=== PATIENT | male | born 1960 | race American Indian/Alaskan Native ===

== ENCOUNTER → 2018-01-30 | Outpatient (CLI) | payer MEDICARE, OTHER ==
[~2018-01-30] MED LIST: ACET325; ACET325 PO; ACET500 PO; ALBU90OI; ALBU90OI INH; ARIP10 PO; ASPI325EC; ASPI81CH PO; ATOR10; ATOR40TA PO; CHOL10002 PO; CYAN100 PO; Cleocin HCl300 MG PO; DOCSEN; Dilantin 100 m100 MG PO; EZET10 PO; FISH1000 PO; FLUSAL2505 INH; FLUT110OIA; FOLI1; FOLI1 PO; FURO20 PO; HYDACE10B PO; HYDCHL12.5 PO; HYDR1TAB94 PO; Hydrocodone-Ap1 EA23 PO; IBUP400 PO; LEVO750 PO; LISHYD1012; LISI5 PO; LISINOPRIL 10MG PO; LOPE2C; LOPE2C PO; Lotrimin Ultra12 GM TP; MULTIVITAMIN PO; MULVIT PO; MULVITMIND; MULVITMIND PO; MUPI2TC; NIAC250ER PO; NYST100TC TOP; NYSTOP; OLAN5 PO; OLANZAPINE5 MG PO; PANT40; PHENY100ER; PHENY100ER PO; RANI150; SENNP; SIMV20; THIA100 PO; TIOT18; TIOT18 INH; VITAMIN B-1100 MG PO; VITAMIN B1; VITAMIN D31000 UNIT PO; VITB100; [UNRECOGNIZED DRUG - OTHER]; [UNRECOGNIZED DRUG - OTHER]
== END ==
LOC: LAB SHORT 12:57 → LAB EV 12:57
DX: L03.90 Cellulitis, unspecified (principal)
CPT/HCPCS: 87070; 87077; 87147; 87186; 87205

== ENCOUNTER 2018-03-20 07:53 | Day surgery (SDC) | payer MEDICARE, OTHER | END 2018-03-20 22:58 | disposition home or self-care (01) | LOC: WOUND 07:53 | DX: L97.202 Non-pressure chronic ulcer of unspecified calf with fat layer exposed (principal); I87.2 Venous insufficiency (chronic) (peripheral); E11.9 Type 2 diabetes mellitus without complications; Z72.0 Tobacco use ==

== ENCOUNTER 2018-03-23 01:08 | Day surgery (SDC) | payer MEDICARE, OTHER | END 2018-03-23 22:59 | disposition home or self-care (01) | LOC: WOUND 01:08 | DX: Z48.00 Encounter for change or removal of nonsurgical wound dressing (principal); E11.622 Type 2 diabetes mellitus with other skin ulcer; L97.202 Non-pressure chronic ulcer of unspecified calf with fat layer exposed; Z72.0 Tobacco use | CPT/HCPCS: G0463 ==

== ENCOUNTER 2018-05-08 00:11 | Day surgery (SDC) | payer MEDICARE, OTHER ==
[~2018-05-08 00:11] MED LIST changes: +FISH OIL 1,0001 EAC1 PO
== END 2018-05-08 22:38 | disposition home or self-care (01) ==
LOC: WOUND 00:11
DX: L97.202 Non-pressure chronic ulcer of unspecified calf with fat layer exposed (principal); I87.2 Venous insufficiency (chronic) (peripheral); E11.9 Type 2 diabetes mellitus without complications; Z72.0 Tobacco use
CPT/HCPCS: 87070; 87075; 87077; 87147; 87186; 87205; G0463

== ENCOUNTER 2018-05-18 10:51 | Day surgery (SDC) | payer MEDICARE, OTHER | END 2018-05-18 23:08 | disposition home or self-care (01) | LOC: WOUND 10:51 | DX: L97.222 Non-pressure chronic ulcer of left calf with fat layer exposed (principal); I87.2 Venous insufficiency (chronic) (peripheral); E11.9 Type 2 diabetes mellitus without complications; Z72.0 Tobacco use ==

== ENCOUNTER 2018-05-25 10:15 | Day surgery (SDC) | payer MEDICARE, OTHER | END 2018-05-25 22:44 | disposition home or self-care (01) | LOC: WOUND 10:15 | PROC: 0HBLXZZ Excision of Left Lower Leg Skin, External Approach (ICD-10-PCS; principal; 2018-05-25) | DX: E11.622 Type 2 diabetes mellitus with other skin ulcer (principal); L97.202 Non-pressure chronic ulcer of unspecified calf with fat layer exposed; I87.2 Venous insufficiency (chronic) (peripheral) ==

== ENCOUNTER 2018-05-29 10:00 | Day surgery (SDC) | payer MEDICARE, OTHER | END 2018-05-29 22:34 | disposition home or self-care (01) | LOC: WOUND 10:00 | PROC: 0HBLXZZ Excision of Left Lower Leg Skin, External Approach (ICD-10-PCS; principal; 2018-05-29) | DX: E11.622 Type 2 diabetes mellitus with other skin ulcer (principal); L97.822 Non-pressure chronic ulcer of other part of left lower leg with fat layer exposed; I87.2 Venous insufficiency (chronic) (peripheral) ==

== ENCOUNTER → 2018-06-09 | Outpatient (CLI) | payer MEDICARE, OTHER ==
[~2018-06-09] MED LIST changes: +FURO40 PO; +POTA10T PO; +VITB2 PO
== END | disposition home or self-care (01) ==
LOC: LAB SHORT 11:30 → LAB 11:30
DX: L97.222 Non-pressure chronic ulcer of left calf with fat layer exposed (principal)
CPT/HCPCS: 87070; 87075; 87205

== ENCOUNTER 2018-06-12 00:10 | Day surgery (SDC) | payer MEDICARE, OTHER ==
[~2018-06-12 00:10] MED LIST changes: -FURO40 PO; -POTA10T PO; -VITB2 PO
== END 2018-06-12 22:56 | disposition home or self-care (01) ==
LOC: WOUND 00:10
DX: L97.222 Non-pressure chronic ulcer of left calf with fat layer exposed (principal); I87.2 Venous insufficiency (chronic) (peripheral); E11.9 Type 2 diabetes mellitus without complications; Z72.0 Tobacco use
CPT/HCPCS: G0463

== ENCOUNTER → 2018-06-14 | Outpatient (CLI) | payer MEDICARE, OTHER ==
[~2018-06-14] MED LIST changes: +FURO40 PO; +POTA10T PO; +VITB2 PO
== END | disposition home or self-care (01) ==
LOC: LAB 18:41 → LAB SHORT 18:41
DX: L97.222 Non-pressure chronic ulcer of left calf with fat layer exposed (principal)
CPT/HCPCS: 87070; 87075; 87077; 87186; 87205

== ENCOUNTER 2018-06-19 12:50 | Day surgery (SDC) | payer MEDICARE, OTHER ==
[~2018-06-19 12:50] MED LIST changes: -FURO40 PO; -POTA10T PO; -VITB2 PO
== END 2018-06-19 22:44 | disposition home or self-care (01) ==
LOC: WOUND 12:50
DX: L97.222 Non-pressure chronic ulcer of left calf with fat layer exposed (principal); I87.2 Venous insufficiency (chronic) (peripheral); E11.9 Type 2 diabetes mellitus without complications; Z72.0 Tobacco use

== ENCOUNTER 2018-06-21 01:36 | Day surgery (SDC) | payer MEDICARE, OTHER ==
[~2018-06-21] VITALS: Ht 182.9 cm; Wt 138.0 kg
[2018-06-21] MEDS ORDERED: FURO40 PO (08:25)
[2018-06-21] MEDS ORDERED: PHENY100ER PO (08:28)
[2018-06-21] MEDS ORDERED: POTA10T PO (08:28)
[2018-06-21] MEDS ORDERED: VITB2 PO (08:29)
[2018-06-21] MEDS ORDERED: ALBU90OI INH (08:29)
[2018-06-21] MEDS ORDERED: LOPE2C PO (08:30)
--- NOTE | 2018-06-21 09:39 | NUR ---
VASCULAR ACCESS DR. BARRAGAN STATED NO IV NEEDED FOR THIS PROCEDURE. PT STATED HE WOULD NOT NEED SEDATION FOR THIS PROCEDURE.
== END 2018-06-21 23:02 | disposition home or self-care (01) ==
LOC: MHTC 01:36 → VAS 10:00 → MHTC 10:00
PROC: 065Q3ZZ Destruction of Left Saphenous Vein, Percutaneous Approach (ICD-10-PCS; principal; 2018-06-21)
PROC: B54CZZA Ultrasonography of Left Lower Extremity Veins, Guidance (ICD-10-PCS; principal; 2018-06-21)
PROC: 3E033TZ Introduction of Destructive Agent into Peripheral Vein, Percutaneous Approach (ICD-10-PCS; principal; 2018-06-21)
DX: I83.222 Varicose veins of left lower extremity with both ulcer of calf and inflammation (principal); L97.229 Non-pressure chronic ulcer of left calf with unspecified severity; I89.0 Lymphedema, not elsewhere classified; L03.116 Cellulitis of left lower limb; I87.8 Other specified disorders of veins; G40.909 Epilepsy, unspecified, not intractable, without status epilepticus; I69.354 Hemiplegia and hemiparesis following cerebral infarction affecting left non-dominant side; I10 Essential (primary) hypertension; E78.5 Hyperlipidemia, unspecified; E11.9 Type 2 diabetes mellitus without complications; E66.9 Obesity, unspecified; J44.9 Chronic obstructive pulmonary disease, unspecified; F20.0 Paranoid schizophrenia; F17.210 Nicotine dependence, cigarettes, uncomplicated; Z99.3 Dependence on wheelchair; Z86.14 Personal history of Methicillin resistant Staphylococcus aureus infection; Z79.899 Other long term (current) drug therapy; Z79.82 Long term (current) use of aspirin
CPT/HCPCS: 36466; 36475; 99152; C1888; C1894; J1644; J2250; J3010; J7040

== ENCOUNTER 2018-06-26 12:15 | Day surgery (SDC) | payer MEDICARE, OTHER ==
[~2018-06-26 12:15] MED LIST changes: +FURO40 PO; +POTA10T PO; +VITB2 PO
== END 2018-06-26 22:42 | disposition home or self-care (01) ==
LOC: WOUND 12:15
PROC: 0HBLXZZ Excision of Left Lower Leg Skin, External Approach (ICD-10-PCS; principal; 2018-06-26)
DX: E11.622 Type 2 diabetes mellitus with other skin ulcer (principal); L97.822 Non-pressure chronic ulcer of other part of left lower leg with fat layer exposed; I87.2 Venous insufficiency (chronic) (peripheral)

== ENCOUNTER 2018-07-03 00:31 | Day surgery (SDC) | payer MEDICARE, OTHER | END 2018-07-03 22:36 | disposition home or self-care (01) | LOC: WOUND 00:31 | DX: L97.222 Non-pressure chronic ulcer of left calf with fat layer exposed (principal); I87.2 Venous insufficiency (chronic) (peripheral); E11.9 Type 2 diabetes mellitus without complications; Z72.0 Tobacco use; Z79.899 Other long term (current) drug therapy ==

== ENCOUNTER 2018-07-10 00:08 | Day surgery (SDC) | payer MEDICARE, OTHER | END 2018-07-10 22:39 | disposition home or self-care (01) | LOC: WOUND 00:08 | DX: L97.222 Non-pressure chronic ulcer of left calf with fat layer exposed (principal); I87.2 Venous insufficiency (chronic) (peripheral); E11.9 Type 2 diabetes mellitus without complications; Z72.0 Tobacco use | CPT/HCPCS: G0463 ==

== ENCOUNTER 2018-07-31 00:19 | Day surgery (SDC) | payer MEDICARE, OTHER | END 2018-07-31 22:37 | disposition home or self-care (01) | LOC: WOUND 00:19 | DX: L97.522 Non-pressure chronic ulcer of other part of left foot with fat layer exposed (principal); I87.2 Venous insufficiency (chronic) (peripheral); Z72.0 Tobacco use; E11.9 Type 2 diabetes mellitus without complications ==

== ENCOUNTER 2018-08-07 00:13 | Day surgery (SDC) | payer MEDICARE, OTHER | END 2018-08-07 22:50 | disposition home or self-care (01) | LOC: WOUND 00:13 | DX: E11.621 Type 2 diabetes mellitus with foot ulcer (principal); L97.322 Non-pressure chronic ulcer of left ankle with fat layer exposed; I87.2 Venous insufficiency (chronic) (peripheral); J44.9 Chronic obstructive pulmonary disease, unspecified; I10 Essential (primary) hypertension; I73.9 Peripheral vascular disease, unspecified; G40.909 Epilepsy, unspecified, not intractable, without status epilepticus; Z72.0 Tobacco use | CPT/HCPCS: G0463 ==

== ENCOUNTER 2018-08-14 09:00 | Day surgery (SDC) | payer MEDICARE, OTHER | END 2018-08-14 22:35 | disposition home or self-care (01) | LOC: WOUND 09:00 | DX: E11.622 Type 2 diabetes mellitus with other skin ulcer (principal); L97.322 Non-pressure chronic ulcer of left ankle with fat layer exposed; I87.2 Venous insufficiency (chronic) (peripheral); J44.9 Chronic obstructive pulmonary disease, unspecified; I10 Essential (primary) hypertension; G40.909 Epilepsy, unspecified, not intractable, without status epilepticus; Z72.0 Tobacco use | CPT/HCPCS: G0463 ==

== ENCOUNTER 2018-08-21 01:05 | Day surgery (SDC) | payer MEDICARE, OTHER | END 2018-08-21 23:15 | disposition home or self-care (01) | LOC: WOUND 01:05 | DX: E11.622 Type 2 diabetes mellitus with other skin ulcer (principal); L97.322 Non-pressure chronic ulcer of left ankle with fat layer exposed; I73.9 Peripheral vascular disease, unspecified; I10 Essential (primary) hypertension; J44.9 Chronic obstructive pulmonary disease, unspecified; Z86.73 Personal history of transient ischemic attack (TIA), and cerebral infarction without residual deficits ==

== ENCOUNTER 2018-08-28 00:24 | Day surgery (SDC) | payer MEDICARE, OTHER | END 2018-08-28 22:46 | disposition home or self-care (01) | LOC: WOUND 00:24 | DX: I87.2 Venous insufficiency (chronic) (peripheral) (principal); E11.622 Type 2 diabetes mellitus with other skin ulcer; L97.322 Non-pressure chronic ulcer of left ankle with fat layer exposed; I89.0 Lymphedema, not elsewhere classified; J44.9 Chronic obstructive pulmonary disease, unspecified; I73.9 Peripheral vascular disease, unspecified; Z72.0 Tobacco use ==

== ENCOUNTER 2018-09-04 09:03 | Day surgery (SDC) | payer MEDICARE, OTHER | END 2018-09-04 22:47 | disposition home or self-care (01) | LOC: WOUND 09:03 | DX: I87.2 Venous insufficiency (chronic) (peripheral) (principal); E11.621 Type 2 diabetes mellitus with foot ulcer; L97.522 Non-pressure chronic ulcer of other part of left foot with fat layer exposed; I89.0 Lymphedema, not elsewhere classified; J44.9 Chronic obstructive pulmonary disease, unspecified; I73.9 Peripheral vascular disease, unspecified; G40.909 Epilepsy, unspecified, not intractable, without status epilepticus; Z72.0 Tobacco use; Z86.73 Personal history of transient ischemic attack (TIA), and cerebral infarction without residual deficits; Z99.3 Dependence on wheelchair | CPT/HCPCS: G0463 ==

== ENCOUNTER 2018-09-11 09:42 | Day surgery (SDC) | payer MEDICARE, OTHER | END 2018-09-11 22:38 | disposition home or self-care (01) | LOC: WOUND 09:42 | DX: I87.2 Venous insufficiency (chronic) (peripheral) (principal); E11.621 Type 2 diabetes mellitus with foot ulcer; L97.522 Non-pressure chronic ulcer of other part of left foot with fat layer exposed; Z72.0 Tobacco use | CPT/HCPCS: G0463 ==

== ENCOUNTER 2018-09-18 09:45 | Day surgery (SDC) | payer MEDICARE, OTHER | END 2018-09-18 22:44 | disposition home or self-care (01) | LOC: WOUND 09:45 | DX: E11.621 Type 2 diabetes mellitus with foot ulcer (principal); L97.522 Non-pressure chronic ulcer of other part of left foot with fat layer exposed; I87.2 Venous insufficiency (chronic) (peripheral); E11.622 Type 2 diabetes mellitus with other skin ulcer; Z72.0 Tobacco use | CPT/HCPCS: G0463 ==

== ENCOUNTER → 2019-04-30 | Outpatient (CLI) | payer MEDICARE, OTHER | END | disposition home or self-care (01) | LOC: LAB SHORT 17:43 → LAB EV 17:43 | DX: S91.302A Unspecified open wound, left foot, initial encounter (principal) | CPT/HCPCS: 87070; 87075; 87205 ==

== ENCOUNTER 2019-05-09 09:52 | Day surgery (SDC) | payer MEDICARE, OTHER ==
--- NOTE | 2019-05-09 10:33 | NUR ---
PT INTO SDS VIA mymission2. Patient confirms NPO status and agrees with scheduled surgery. History, Chart, Medications and Allergies reviewed before start of procedure.Patient states colon prep results clear.
--- NOTE | 2019-05-09 10:45 | NUR ---
05/09/19 1045 KHADIJAH CHAKRABORTY History, Chart, Medications and Allergies reviewed before start of procedure.3-LEAD EKG REVIEWED WITH PHYSICIAN PRIOR TO START OF PROCEDURE.O2 VIA N/C INTACT THROUGHOUT SEDATION/PROCEDURE. MONITOR INTACT WITH CONTINUOUS PULSE OXIMETRY AND INTERMITTENT BP.See Anesthesia record
--- NOTE | 2019-05-09 11:20 | NUR ---
PT TO STEP DOWN FOR RECOVERY S/P COLONOSCOPY. PT WITH DEEP SNOROUS RESPIRATIONS AT THIS TIME. SATS 95% ON RA. WAKES TO VERBAL STIMULI.
--- NOTE | 2019-05-09 12:13 | NUR ---
SUMMARY: PT HAD UNEVENTFUL POST PROCEDURE COURSE. AWAKENED WITH EASE. FOLLOWED COMMANDS AND CONVERSING WITH STAFF APPROPRIATELY. NO C/O PAIN, NAUSEA, OR DISCOMFORT. REVIEWED DISCHARGE INSTRUCTIONS WITH PATIENT AND JACOB LUCIO REVIEWED WITH PATIENT'S MCC. ALL VERBALIZED UNDERSTANDING. PT DRESSED BY TRADE EMBALMER AND TRANSFERRED TO WHEELCHAIR USING CEILING LIFT WITHOUT DIFFICULTY. IV DC TIP INTACT BY JACOB LUGO. PRINTED DISCHARGE PACKET SENT HOME WITH PATIENT. TRANSPORT PREARRANGED [facility]IA [facility].
== END 2019-05-09 23:03 | disposition home or self-care (01) ==
LOC: ORSCMMR 09:52 → ORD 11:00 → ORSCMMR 11:00
PROVIDERS: Internal Medicine Gastroenterology
PROC: 0DBN8ZX Excision of Sigmoid Colon, Via Natural or Artificial Opening Endoscopic, Diagnostic (ICD-10-PCS; principal; 2019-05-09 11:00)
PROC: 0DBP8ZX Excision of Rectum, Via Natural or Artificial Opening Endoscopic, Diagnostic (ICD-10-PCS; principal; 2019-05-09 11:00)
DX: Z12.11 Encounter for screening for malignant neoplasm of colon (principal); D12.5 Benign neoplasm of sigmoid colon; D12.8 Benign neoplasm of rectum; K57.30 Diverticulosis of large intestine without perforation or abscess without bleeding; E66.01 Morbid (severe) obesity due to excess calories; Z68.42 Body mass index [BMI] 45.0-49.9, adult; Z86.73 Personal history of transient ischemic attack (TIA), and cerebral infarction without residual deficits; G40.909 Epilepsy, unspecified, not intractable, without status epilepticus; E11.9 Type 2 diabetes mellitus without complications; I10 Essential (primary) hypertension; J44.9 Chronic obstructive pulmonary disease, unspecified; F20.9 Schizophrenia, unspecified; Z79.82 Long term (current) use of aspirin; Z79.84 Long term (current) use of oral hypoglycemic drugs; Z79.899 Other long term (current) drug therapy; F17.210 Nicotine dependence, cigarettes, uncomplicated
CPT/HCPCS: 82947; 88305; J2001; J2704; J7120

== ENCOUNTER 2019-05-24 07:59 | Day surgery (SDC) | payer MEDICARE, OTHER | END 2019-05-24 23:24 | disposition home or self-care (01) | LOC: WOUND 07:59 | DX: E11.622 Type 2 diabetes mellitus with other skin ulcer (principal); L97.822 Non-pressure chronic ulcer of other part of left lower leg with fat layer exposed; E11.52 Type 2 diabetes mellitus with diabetic peripheral angiopathy with gangrene; I96 Gangrene, not elsewhere classified; I89.0 Lymphedema, not elsewhere classified; I87.2 Venous insufficiency (chronic) (peripheral); F17.200 Nicotine dependence, unspecified, uncomplicated; J44.9 Chronic obstructive pulmonary disease, unspecified; I10 Essential (primary) hypertension; G40.909 Epilepsy, unspecified, not intractable, without status epilepticus; Z99.3 Dependence on wheelchair; Z79.82 Long term (current) use of aspirin; Z79.51 Long term (current) use of inhaled steroids; Z79.899 Other long term (current) drug therapy | CPT/HCPCS: G0463 ==

== ENCOUNTER 2019-06-06 00:48 | Day surgery (SDC) | payer MEDICARE, OTHER | END 2019-06-06 23:13 | disposition home or self-care (01) | LOC: WOUND 00:48 | DX: E11.622 Type 2 diabetes mellitus with other skin ulcer (principal); L97.821 Non-pressure chronic ulcer of other part of left lower leg limited to breakdown of skin; I89.0 Lymphedema, not elsewhere classified; I87.2 Venous insufficiency (chronic) (peripheral); Z79.82 Long term (current) use of aspirin; Z79.899 Other long term (current) drug therapy ==

== ENCOUNTER 2019-06-13 00:17 | Day surgery (SDC) | payer MEDICARE, OTHER | END 2019-06-13 23:01 | disposition home or self-care (01) | LOC: WOUND 00:17 | DX: E11.621 Type 2 diabetes mellitus with foot ulcer (principal); L97.521 Non-pressure chronic ulcer of other part of left foot limited to breakdown of skin; L97.821 Non-pressure chronic ulcer of other part of left lower leg limited to breakdown of skin; I89.0 Lymphedema, not elsewhere classified; I87.2 Venous insufficiency (chronic) (peripheral); Z79.82 Long term (current) use of aspirin; Z79.899 Other long term (current) drug therapy | CPT/HCPCS: G0463 ==

== ENCOUNTER 2019-06-27 02:19 | Day surgery (SDC) | payer MEDICARE, OTHER | END 2019-06-27 23:04 | disposition home or self-care (01) | LOC: WOUND 02:19 | DX: E11.622 Type 2 diabetes mellitus with other skin ulcer (principal); E11.621 Type 2 diabetes mellitus with foot ulcer; L97.521 Non-pressure chronic ulcer of other part of left foot limited to breakdown of skin; L97.821 Non-pressure chronic ulcer of other part of left lower leg limited to breakdown of skin; I89.0 Lymphedema, not elsewhere classified; I87.2 Venous insufficiency (chronic) (peripheral); Z79.899 Other long term (current) drug therapy; Z79.82 Long term (current) use of aspirin | CPT/HCPCS: G0463 ==

== ENCOUNTER 2019-07-04 00:28 | Day surgery (SDC) | payer MEDICARE | END 2019-07-04 23:04 | disposition home or self-care (01) | LOC: WOUND 00:28 | DX: E11.621 Type 2 diabetes mellitus with foot ulcer (principal); L97.521 Non-pressure chronic ulcer of other part of left foot limited to breakdown of skin; I89.0 Lymphedema, not elsewhere classified; I87.2 Venous insufficiency (chronic) (peripheral); Z79.899 Other long term (current) drug therapy ==

== ENCOUNTER 2019-07-11 00:13 | Day surgery (SDC) | payer MEDICARE, OTHER | END 2019-07-11 22:45 | disposition home or self-care (01) | LOC: WOUND 00:13 | DX: E11.621 Type 2 diabetes mellitus with foot ulcer (principal); L97.521 Non-pressure chronic ulcer of other part of left foot limited to breakdown of skin; L97.821 Non-pressure chronic ulcer of other part of left lower leg limited to breakdown of skin; I89.0 Lymphedema, not elsewhere classified; I87.2 Venous insufficiency (chronic) (peripheral); Z79.899 Other long term (current) drug therapy; Z79.82 Long term (current) use of aspirin ==

== ENCOUNTER 2019-07-18 00:13 | Day surgery (SDC) | payer MEDICARE | END 2019-07-18 22:49 | disposition home or self-care (01) | LOC: WOUND 00:13 | DX: E11.621 Type 2 diabetes mellitus with foot ulcer (principal); L97.521 Non-pressure chronic ulcer of other part of left foot limited to breakdown of skin; I89.0 Lymphedema, not elsewhere classified; I87.2 Venous insufficiency (chronic) (peripheral); Z79.82 Long term (current) use of aspirin; Z79.899 Other long term (current) drug therapy ==

== ENCOUNTER 2019-07-25 00:31 | Day surgery (SDC) | payer MEDICARE, OTHER | END 2019-07-25 23:12 | disposition home or self-care (01) | LOC: WOUND 00:31 | DX: E11.621 Type 2 diabetes mellitus with foot ulcer (principal); L97.521 Non-pressure chronic ulcer of other part of left foot limited to breakdown of skin; S90.822D Blister (nonthermal), left foot, subsequent encounter; I87.2 Venous insufficiency (chronic) (peripheral); Z79.899 Other long term (current) drug therapy; Z79.82 Long term (current) use of aspirin | CPT/HCPCS: G0463 ==

== ENCOUNTER 2019-09-03 00:11 | Day surgery (SDC) | payer MEDICARE, OTHER | END 2019-09-03 22:46 | disposition home or self-care (01) | LOC: WOUND 00:11 | DX: E11.621 Type 2 diabetes mellitus with foot ulcer (principal); L97.521 Non-pressure chronic ulcer of other part of left foot limited to breakdown of skin; I89.0 Lymphedema, not elsewhere classified; F17.210 Nicotine dependence, cigarettes, uncomplicated; I87.2 Venous insufficiency (chronic) (peripheral) | CPT/HCPCS: G0463 ==

== ENCOUNTER 2019-09-10 00:19 | Day surgery (SDC) | payer MEDICARE, OTHER | END 2019-09-10 22:49 | disposition home or self-care (01) | LOC: WOUND 00:19 | DX: E11.621 Type 2 diabetes mellitus with foot ulcer (principal); L97.521 Non-pressure chronic ulcer of other part of left foot limited to breakdown of skin; I87.2 Venous insufficiency (chronic) (peripheral); F17.210 Nicotine dependence, cigarettes, uncomplicated; Z79.82 Long term (current) use of aspirin; Z79.899 Other long term (current) drug therapy ==

== ENCOUNTER 2019-09-17 00:35 | Day surgery (SDC) | payer MEDICARE, OTHER | END 2019-09-17 22:35 | disposition home or self-care (01) | LOC: WOUND 00:35 | DX: E11.621 Type 2 diabetes mellitus with foot ulcer (principal); I87.2 Venous insufficiency (chronic) (peripheral); F17.210 Nicotine dependence, cigarettes, uncomplicated; Z79.82 Long term (current) use of aspirin; L97.521 Non-pressure chronic ulcer of other part of left foot limited to breakdown of skin; Z79.899 Other long term (current) drug therapy | CPT/HCPCS: G0463 ==

== ENCOUNTER 2019-09-24 00:07 | Day surgery (SDC) | payer MEDICARE, OTHER | END 2019-09-24 22:34 | disposition home or self-care (01) | LOC: WOUND 00:07 | DX: E11.621 Type 2 diabetes mellitus with foot ulcer (principal); L97.521 Non-pressure chronic ulcer of other part of left foot limited to breakdown of skin; I87.2 Venous insufficiency (chronic) (peripheral); F17.210 Nicotine dependence, cigarettes, uncomplicated; Z79.899 Other long term (current) drug therapy; Z79.82 Long term (current) use of aspirin ==

== ENCOUNTER 2019-10-01 00:12 | Day surgery (SDC) | payer MEDICARE, OTHER | END 2019-10-01 22:43 | disposition home or self-care (01) | LOC: WOUND 00:12 | DX: T14.90XD Injury, unspecified, subsequent encounter (principal) | CPT/HCPCS: G0463 ==

== ENCOUNTER 2019-10-08 00:27 | Day surgery (SDC) | payer MEDICARE, OTHER | END 2019-10-08 23:05 | disposition home or self-care (01) | LOC: WOUND 00:27 | DX: T14.8XXA Other injury of unspecified body region, initial encounter (principal); X58.XXXA Exposure to other specified factors, initial encounter | CPT/HCPCS: G0463 ==

== ENCOUNTER 2019-10-15 00:11 | Day surgery (SDC) | payer MEDICARE, OTHER | END 2019-10-15 22:50 | disposition home or self-care (01) | LOC: WOUND 00:11 | DX: E11.621 Type 2 diabetes mellitus with foot ulcer (principal); L97.521 Non-pressure chronic ulcer of other part of left foot limited to breakdown of skin; I87.2 Venous insufficiency (chronic) (peripheral); F17.210 Nicotine dependence, cigarettes, uncomplicated; Z79.899 Other long term (current) drug therapy; Z79.82 Long term (current) use of aspirin ==

== ENCOUNTER 2019-10-22 00:31 | Day surgery (SDC) | payer MEDICARE, OTHER | END 2019-10-22 22:43 | disposition home or self-care (01) | LOC: WOUND 00:31 | DX: E11.621 Type 2 diabetes mellitus with foot ulcer (principal); L97.521 Non-pressure chronic ulcer of other part of left foot limited to breakdown of skin; I89.0 Lymphedema, not elsewhere classified; I87.2 Venous insufficiency (chronic) (peripheral); F17.210 Nicotine dependence, cigarettes, uncomplicated | CPT/HCPCS: G0463 ==

== ENCOUNTER 2019-10-29 00:09 | Day surgery (SDC) | payer MEDICARE, OTHER | END 2019-10-29 23:00 | disposition home or self-care (01) | LOC: WOUND 00:09 | DX: E11.621 Type 2 diabetes mellitus with foot ulcer (principal); L97.521 Non-pressure chronic ulcer of other part of left foot limited to breakdown of skin; I87.2 Venous insufficiency (chronic) (peripheral); F17.210 Nicotine dependence, cigarettes, uncomplicated; Z79.82 Long term (current) use of aspirin | CPT/HCPCS: G0463 ==

== ENCOUNTER 2019-11-05 00:25 | Day surgery (SDC) | payer MEDICARE, OTHER | END 2019-11-05 22:35 | disposition home or self-care (01) | LOC: WOUND 00:25 | DX: L97.522 Non-pressure chronic ulcer of other part of left foot with fat layer exposed (principal); I89.0 Lymphedema, not elsewhere classified; E11.9 Type 2 diabetes mellitus without complications; I87.2 Venous insufficiency (chronic) (peripheral); F17.210 Nicotine dependence, cigarettes, uncomplicated ==

== ENCOUNTER 2019-11-12 00:20 | Day surgery (SDC) | payer MEDICARE, OTHER | END 2019-11-12 23:12 | disposition home or self-care (01) | LOC: WOUND 00:20 | DX: E11.621 Type 2 diabetes mellitus with foot ulcer (principal); L97.521 Non-pressure chronic ulcer of other part of left foot limited to breakdown of skin; I87.2 Venous insufficiency (chronic) (peripheral); F17.210 Nicotine dependence, cigarettes, uncomplicated; Z79.899 Other long term (current) drug therapy; Z79.82 Long term (current) use of aspirin ==

== ENCOUNTER 2019-11-26 00:10 | Day surgery (SDC) | payer MEDICARE, OTHER | END 2019-11-26 22:38 | disposition home or self-care (01) | LOC: WOUND 00:10 | DX: E11.621 Type 2 diabetes mellitus with foot ulcer (principal); L97.521 Non-pressure chronic ulcer of other part of left foot limited to breakdown of skin; I87.2 Venous insufficiency (chronic) (peripheral); F17.210 Nicotine dependence, cigarettes, uncomplicated; Z79.82 Long term (current) use of aspirin; Z79.899 Other long term (current) drug therapy ==

== ENCOUNTER 2020-01-14 00:13 | Day surgery (SDC) | payer MEDICARE, OTHER | END 2020-01-14 23:11 | disposition home or self-care (01) | LOC: WOUND 00:13 | DX: E11.621 Type 2 diabetes mellitus with foot ulcer (principal); I87.2 Venous insufficiency (chronic) (peripheral); F17.210 Nicotine dependence, cigarettes, uncomplicated; L97.522 Non-pressure chronic ulcer of other part of left foot with fat layer exposed; Z79.899 Other long term (current) drug therapy; Z79.82 Long term (current) use of aspirin ==

== ENCOUNTER 2020-01-21 01:49 | Day surgery (SDC) | payer MEDICARE, OTHER | END 2020-01-21 22:37 | disposition home or self-care (01) | LOC: WOUND 01:49 | DX: E11.621 Type 2 diabetes mellitus with foot ulcer (principal); L97.521 Non-pressure chronic ulcer of other part of left foot limited to breakdown of skin; I89.0 Lymphedema, not elsewhere classified; I87.2 Venous insufficiency (chronic) (peripheral); F17.210 Nicotine dependence, cigarettes, uncomplicated; Z79.899 Other long term (current) drug therapy; Z79.82 Long term (current) use of aspirin ==

== ENCOUNTER 2020-02-10 01:09 | Day surgery (SDC) | payer MEDICARE, OTHER | END 2020-02-10 23:17 | disposition home or self-care (01) | LOC: WOUND 01:09 | DX: E11.621 Type 2 diabetes mellitus with foot ulcer (principal); L97.521 Non-pressure chronic ulcer of other part of left foot limited to breakdown of skin; I87.2 Venous insufficiency (chronic) (peripheral); F17.210 Nicotine dependence, cigarettes, uncomplicated; Z79.899 Other long term (current) drug therapy | CPT/HCPCS: G0463 ==

== ENCOUNTER → 2020-04-07 | Outpatient (CLI) | payer MEDICARE, OTHER | LOC: LAB 18:09 → LAB SHORT 18:09 | DX: L08.9 Local infection of the skin and subcutaneous tissue, unspecified (principal) | CPT/HCPCS: 87070; 87077; 87147; 87186; 87205 ==

== ENCOUNTER → 2020-04-10 | Outpatient (CLI) | payer MEDICARE, OTHER ==
[2020-04-10 15:44] LABS: BASOPHILS ABSOLUTE AUTO 0.08 K/mm3 (0.00-0.23); BASOPHILS PERCENT AUTO 1 % (0-2); EOSINOPHILS ABSOLUTE AUTO 0.29 K/mm3 (0.00-0.68); EOSINOPHILS PERCENT AUTO 3 % (0-6); Hematocrit 51.5 % (37.0-53.0); Hemoglobin 16.4 g/dL (13.5-17.5); IMMATURE GRAN ABSOLUTE AUTO 0.12 K/mm3 (0.00-0.10); IMMATURE GRAN PERCENT AUTO 1 % (0-1); LYMPHOCYTES ABSOLUTE AUTO 2.29 K/mm3 (0.84-5.20); LYMPHOCYTES PERCENT AUTO 22 % (21-46); MONOCYTES ABSOLUTE AUTO 1.02 K/mm3 (0.16-1.47); MONOCYTES PERCENT AUTO 10 % (4-13); Mean Corpuscular HGB 30.1 pg (26.0-34.0); Mean Corpuscular HGB Conc 31.8 g/dL (31.5-36.5); Mean Corpuscular Volume 95 fL (80-100); Mean Platelet Volume 10.5 fL (9.1-12.4); NEUTROPHILS ABSOLUTE AUTO 6.55 K/mm3 (1.96-9.15); NEUTROPHILS PERCENT AUTO 63 % (41-73); Platelet Count 398 K/mm3 (150-400); RDW Coefficient Variation 13.3 % (11.7-14.2); RDW Standard Deviation 47.2 fL (35.1-46.3); Red Blood Cell Count 5.44 M/mm3 (4.30-5.90); White Blood Cell Count 10.35 K/mm3 (4.00-11.30)
== END | disposition home or self-care (01) ==
LOC: LAB SHORT 15:08 → LAB 15:08
PROVIDERS: Nurse Practitioner Family
DX: E78.2 Mixed hyperlipidemia (principal); E11.9 Type 2 diabetes mellitus without complications; I10 Essential (primary) hypertension
CPT/HCPCS: 85025

== ENCOUNTER → 2020-04-14 | Outpatient (CLI) | payer MEDICARE, OTHER ==
[2020-04-14 18:31] LABS: Alanine Aminotransfer (ALT/SGP 41 U/L (12-78); Albumin, Blood 3.4 g/dL (3.4-5.0); Albumin/Globulin Ratio 0.7 (0.8-1.8); Alk Phos 125 U/L (50-136); Anion Gap 4 mmol/L (6-16); Aspartate Aminotrans (AST/SGOT 39 U/L (12-37); Bilirubin, Total 0.3 mg/dL (0.1-1.0); Blood Urea Nitrogen 16 mg/dL (8-24); Bun/Creatinine Ratio 23.2 (12.0-20.0); CHOL/HDL RATIO 2.9; CO2, Blood 30 mmol/L (21-32); Calcium, Blood 9.3 mg/dL (8.5-10.1); Chloride, Blood 104 mmol/L (98-108); Cholesterol 126 mg/dL (50-200); Creatinine, Blood 0.69 mg/dL (0.60-1.20); Globulin, Blood 4.9 g/dL (2.2-4.0); Glomerular Filtration Rate >60 (60-); Glucose, Blood 159 mg/dL (70-99); HDL Cholesterol 43 mg/dL (>39); LDL/HDL RATIO 0.6; Low Density Lipoprotein Chol 25 mg/dL (0-110); Potassium, Blood 4.3 mmol/L (3.5-5.5); Sodium, Blood 138 mmol/L (136-145); Total Protein, Blood 8.3 g/dL (6.4-8.2); Triglycerides 292 mg/dL (30-160); Very Low Density Lipoprot Chol 58 mg/dL (6-32)
== END ==
LOC: LAB UCHC 17:10 → LAB SHORT 17:10
PROVIDERS: Nurse Practitioner Family
DX: E11.9 Type 2 diabetes mellitus without complications (principal); E78.2 Mixed hyperlipidemia; I10 Essential (primary) hypertension
CPT/HCPCS: 80053; 80061

== ENCOUNTER → 2020-04-23 | Outpatient (CLI) | payer MEDICARE, OTHER | END | disposition home or self-care (01) | LOC: LAB SHORT 17:56 → LAB 17:56 | DX: E11.9 Type 2 diabetes mellitus without complications (principal); I10 Essential (primary) hypertension; E78.2 Mixed hyperlipidemia | CPT/HCPCS: 83036 ==

== ENCOUNTER → 2020-05-08 | Outpatient (CLI) | payer MEDICARE, OTHER | LOC: LAB SHORT 16:21 → LAB 16:21 | DX: A49.02 Methicillin resistant Staphylococcus aureus infection, unspecified site (principal); L97.529 Non-pressure chronic ulcer of other part of left foot with unspecified severity; I89.0 Lymphedema, not elsewhere classified; I87.2 Venous insufficiency (chronic) (peripheral); M79.89 Other specified soft tissue disorders | CPT/HCPCS: 87070; 87205 ==

== ENCOUNTER → 2020-05-25 | Outpatient (CLI) | payer MEDICARE, OTHER | LOC: LAB SHORT 10:30 → LAB 10:30 | DX: A49.02 Methicillin resistant Staphylococcus aureus infection, unspecified site (principal); L97.529 Non-pressure chronic ulcer of other part of left foot with unspecified severity | CPT/HCPCS: 87070; 87205 ==

== ENCOUNTER → 2020-05-26 | Outpatient (CLI) | payer MEDICARE, OTHER | LOC: LAB 14:10 → LAB SHORT 14:10 | DX: I89.0 Lymphedema, not elsewhere classified (principal); I87.2 Venous insufficiency (chronic) (peripheral); M79.89 Other specified soft tissue disorders; L97.529 Non-pressure chronic ulcer of other part of left foot with unspecified severity; A49.02 Methicillin resistant Staphylococcus aureus infection, unspecified site | CPT/HCPCS: 87070; 87077; 87186; 87205 ==

== ENCOUNTER → 2020-06-18 | Outpatient (CLI) | payer MEDICARE, OTHER ==
[2020-06-18 13:31] LABS: Source, Urine Clean Catch
[2020-06-18 15:24] LABS: Appearance, Urine Cloudy (Clear); Bilirubin, Urine Neg (Neg); Blood, Urine 5+ (Neg); Color, Urine Amber (P-Yellow); Glucose Qualitative, Urine 4+ (Neg); Ketones, Urine Neg (Neg); Leukocyte Esterase, Urine 1+ (Neg); Nitrite, Urine Neg (Neg); Protein, Urine 2+ (Neg); Specific Gravity, Urine 1.015 (1.003-1.022); Urobilinogen, Urine NORM (Normal)
[2020-06-18 15:43] LABS: Red Blood Cells, Urine TNTC /hpf (0-2)
[2020-06-18 15:44] LABS: Bacteria Few /hpf; Squamous Epithelial Cells Not Seen /hpf (Few); Transitional Epithelial Cells Rare /hpf (0-Rare)
== END | disposition home or self-care (01) ==
LOC: LAB 13:28 → LAB SHORT 13:28
PROVIDERS: Nurse Practitioner Family
DX: Z08 Encounter for follow-up examination after completed treatment for malignant neoplasm (principal); Z85.51 Personal history of malignant neoplasm of bladder
CPT/HCPCS: 81001; 87086

== ENCOUNTER → 2020-10-06 | Outpatient (CLI) | payer MEDICARE, OTHER ==
[2020-10-08 15:25] LABS: CORONAVIRUS (COVID19) CSH-NRL Negative (Negative)
== END | disposition home or self-care (01) ==
LOC: LAB SHORT 12:09 → LAB 12:09
PROVIDERS: Family Medicine
DX: Z20.822 Contact with and (suspected) exposure to COVID-19 (principal)
CPT/HCPCS: U0003

== ENCOUNTER 2020-10-20 09:45 | Day surgery (SDC) | payer MEDICARE, OTHER | END 2020-10-20 23:40 | disposition home or self-care (01) | LOC: WOUND 09:45 | DX: E11.621 Type 2 diabetes mellitus with foot ulcer (principal); L97.522 Non-pressure chronic ulcer of other part of left foot with fat layer exposed; L97.521 Non-pressure chronic ulcer of other part of left foot limited to breakdown of skin; E11.622 Type 2 diabetes mellitus with other skin ulcer; L97.822 Non-pressure chronic ulcer of other part of left lower leg with fat layer exposed; I89.0 Lymphedema, not elsewhere classified; I87.2 Venous insufficiency (chronic) (peripheral); E11.9 Type 2 diabetes mellitus without complications; F17.210 Nicotine dependence, cigarettes, uncomplicated | CPT/HCPCS: G0463 ==

== ENCOUNTER 2020-10-26 00:33 | Day surgery (SDC) | payer MEDICARE, OTHER | END 2020-10-26 22:55 | disposition home or self-care (01) | LOC: WOUND 00:33 | DX: E11.621 Type 2 diabetes mellitus with foot ulcer (principal); L97.522 Non-pressure chronic ulcer of other part of left foot with fat layer exposed; L97.521 Non-pressure chronic ulcer of other part of left foot limited to breakdown of skin; I89.0 Lymphedema, not elsewhere classified; I87.2 Venous insufficiency (chronic) (peripheral); Z72.0 Tobacco use | CPT/HCPCS: A9270 ==

== ENCOUNTER 2020-11-02 00:22 | Day surgery (SDC) | payer MEDICARE, OTHER | END 2020-11-02 23:13 | disposition home or self-care (01) | LOC: WOUND 00:22 | DX: E11.621 Type 2 diabetes mellitus with foot ulcer (principal); L97.525 Non-pressure chronic ulcer of other part of left foot with muscle involvement without evidence of necrosis; L97.522 Non-pressure chronic ulcer of other part of left foot with fat layer exposed; E11.622 Type 2 diabetes mellitus with other skin ulcer; L97.825 Non-pressure chronic ulcer of other part of left lower leg with muscle involvement without evidence of necrosis; L03.116 Cellulitis of left lower limb; I87.2 Venous insufficiency (chronic) (peripheral); I89.0 Lymphedema, not elsewhere classified; Z72.0 Tobacco use | CPT/HCPCS: 87071; 87075; 87077; 87186; 87205; A9270 ==

== ENCOUNTER 2020-11-09 00:34 | Day surgery (SDC) | payer MEDICARE, OTHER | END 2020-11-10 02:18 | disposition home or self-care (01) | LOC: WOUND 00:34 | DX: E11.621 Type 2 diabetes mellitus with foot ulcer (principal); L97.522 Non-pressure chronic ulcer of other part of left foot with fat layer exposed; L97.521 Non-pressure chronic ulcer of other part of left foot limited to breakdown of skin; E11.622 Type 2 diabetes mellitus with other skin ulcer; L97.822 Non-pressure chronic ulcer of other part of left lower leg with fat layer exposed; I89.0 Lymphedema, not elsewhere classified; I87.2 Venous insufficiency (chronic) (peripheral); E11.9 Type 2 diabetes mellitus without complications; Z72.0 Tobacco use | CPT/HCPCS: A9270 ==

== ENCOUNTER → 2020-11-13 | Outpatient (CLI) | payer MEDICARE, OTHER ==
[2020-11-13 14:26] LABS: Source, Urine Clean Catch
[2020-11-13 15:02] LABS: Appearance, Urine Clear (Clear); Bilirubin, Urine Neg (Neg); Blood, Urine 2+ (Neg); Color, Urine Yellow (P-Yellow); Glucose Qualitative, Urine 4+ (Neg); Ketones, Urine Neg (Neg); Leukocyte Esterase, Urine 1+ (Neg); Nitrite, Urine Neg (Neg); Protein, Urine Neg (Neg); Urobilinogen, Urine NORM (Normal)
[2020-11-13 15:12] LABS: Bacteria Mod /hpf; Red Blood Cells, Urine Rare /hpf (0-2); Squamous Epithelial Cells Not Seen /hpf (Few)
== END | disposition home or self-care (01) ==
LOC: LAB 14:24 → LAB SHORT 14:24
PROVIDERS: Nurse Practitioner Family
DX: N39.0 Urinary tract infection, site not specified (principal)
CPT/HCPCS: 81001; 87077; 87086; 87186

== ENCOUNTER 2020-11-16 00:31 | Day surgery (SDC) | payer MEDICARE, OTHER | END 2020-11-16 23:32 | disposition home or self-care (01) | LOC: WOUND | DX: E11.621 Type 2 diabetes mellitus with foot ulcer (principal); L97.525 Non-pressure chronic ulcer of other part of left foot with muscle involvement without evidence of necrosis; F17.210 Nicotine dependence, cigarettes, uncomplicated; E11.622 Type 2 diabetes mellitus with other skin ulcer; L97.825 Non-pressure chronic ulcer of other part of left lower leg with muscle involvement without evidence of necrosis; I87.2 Venous insufficiency (chronic) (peripheral); I89.0 Lymphedema, not elsewhere classified | CPT/HCPCS: 87071; 87075; 87077; 87147; 87186; 87205; A9270 ==

== ENCOUNTER 2020-11-25 00:58 | Day surgery (SDC) | payer MEDICARE, OTHER | END 2020-11-25 23:42 | disposition home or self-care (01) | LOC: WOUND 00:58 | DX: E11.621 Type 2 diabetes mellitus with foot ulcer (principal); L97.522 Non-pressure chronic ulcer of other part of left foot with fat layer exposed; L97.521 Non-pressure chronic ulcer of other part of left foot limited to breakdown of skin; E11.622 Type 2 diabetes mellitus with other skin ulcer; L97.822 Non-pressure chronic ulcer of other part of left lower leg with fat layer exposed; I89.0 Lymphedema, not elsewhere classified; I87.2 Venous insufficiency (chronic) (peripheral); Z72.0 Tobacco use | CPT/HCPCS: A9270 ==

== ENCOUNTER 2020-12-09 01:19 | Day surgery (SDC) | payer MEDICARE, OTHER | END 2020-12-09 23:06 | disposition home or self-care (01) | LOC: WOUND 01:19 | DX: E11.622 Type 2 diabetes mellitus with other skin ulcer (principal); L97.822 Non-pressure chronic ulcer of other part of left lower leg with fat layer exposed; E11.621 Type 2 diabetes mellitus with foot ulcer; L97.521 Non-pressure chronic ulcer of other part of left foot limited to breakdown of skin; L97.522 Non-pressure chronic ulcer of other part of left foot with fat layer exposed; I89.0 Lymphedema, not elsewhere classified; I87.2 Venous insufficiency (chronic) (peripheral); F17.210 Nicotine dependence, cigarettes, uncomplicated | CPT/HCPCS: A9270 ==

== ENCOUNTER 2020-12-16 01:26 | Day surgery (SDC) | payer MEDICARE, OTHER | END 2020-12-16 22:41 | disposition home or self-care (01) | LOC: WOUND 01:26 | DX: E11.621 Type 2 diabetes mellitus with foot ulcer (principal); L97.522 Non-pressure chronic ulcer of other part of left foot with fat layer exposed; L97.521 Non-pressure chronic ulcer of other part of left foot limited to breakdown of skin; E11.622 Type 2 diabetes mellitus with other skin ulcer; I89.0 Lymphedema, not elsewhere classified; I87.2 Venous insufficiency (chronic) (peripheral); Z72.0 Tobacco use | CPT/HCPCS: A9270 ==

== ENCOUNTER 2020-12-23 01:22 | Day surgery (SDC) | payer MEDICARE, OTHER | END 2020-12-23 23:05 | disposition home or self-care (01) | LOC: WOUND 01:22 | DX: E11.622 Type 2 diabetes mellitus with other skin ulcer (principal); L97.822 Non-pressure chronic ulcer of other part of left lower leg with fat layer exposed; E11.621 Type 2 diabetes mellitus with foot ulcer; L97.521 Non-pressure chronic ulcer of other part of left foot limited to breakdown of skin; L97.522 Non-pressure chronic ulcer of other part of left foot with fat layer exposed; I87.2 Venous insufficiency (chronic) (peripheral); I89.0 Lymphedema, not elsewhere classified; Z72.0 Tobacco use | CPT/HCPCS: A9270 ==

== ENCOUNTER 2020-12-30 01:29 | Day surgery (SDC) | payer MEDICARE, OTHER | END 2020-12-30 22:39 | disposition home or self-care (01) | LOC: WOUND 01:29 | DX: E11.622 Type 2 diabetes mellitus with other skin ulcer (principal); L97.822 Non-pressure chronic ulcer of other part of left lower leg with fat layer exposed; E11.621 Type 2 diabetes mellitus with foot ulcer; L97.522 Non-pressure chronic ulcer of other part of left foot with fat layer exposed; F17.210 Nicotine dependence, cigarettes, uncomplicated; I89.0 Lymphedema, not elsewhere classified; I87.2 Venous insufficiency (chronic) (peripheral) | CPT/HCPCS: A9270 ==

== ENCOUNTER 2021-01-06 02:27 | Day surgery (SDC) | payer MEDICARE, OTHER | END 2021-01-06 23:11 | disposition home or self-care (01) | LOC: WOUND 02:27 | DX: E11.621 Type 2 diabetes mellitus with foot ulcer (principal); L97.522 Non-pressure chronic ulcer of other part of left foot with fat layer exposed; E11.622 Type 2 diabetes mellitus with other skin ulcer; L97.822 Non-pressure chronic ulcer of other part of left lower leg with fat layer exposed; I89.0 Lymphedema, not elsewhere classified; I87.2 Venous insufficiency (chronic) (peripheral); Z72.0 Tobacco use | CPT/HCPCS: A9270; G0463 ==

== ENCOUNTER → 2021-01-07 | Outpatient (CLI) | payer MEDICARE, OTHER ==
[2021-01-07 10:10] LABS: BASOPHILS ABSOLUTE AUTO 0.08 K/mm3 (0.00-0.23); BASOPHILS PERCENT AUTO 1 % (0-2); EOSINOPHILS ABSOLUTE AUTO 0.23 K/mm3 (0.00-0.68); EOSINOPHILS PERCENT AUTO 3 % (0-6); Hemoglobin 15.6 g/dL (13.5-17.5); IMMATURE GRAN ABSOLUTE AUTO 0.03 K/mm3 (0.00-0.10); IMMATURE GRAN PERCENT AUTO 0 % (0-1); LYMPHOCYTES ABSOLUTE AUTO 2.24 K/mm3 (0.84-5.20); LYMPHOCYTES PERCENT AUTO 24 % (21-46); MONOCYTES PERCENT AUTO 10 % (4-13); Mean Corpuscular HGB 29.1 pg (26.0-34.0); Mean Corpuscular HGB Conc 32.5 g/dL (31.5-36.5); Mean Corpuscular Volume 89 fL (80-100); Mean Platelet Volume 9.9 fL (9.1-12.4); NEUTROPHILS ABSOLUTE AUTO 5.84 K/mm3 (1.96-9.15); NEUTROPHILS PERCENT AUTO 63 % (41-73); Platelet Count 492 K/mm3 (150-400); RDW Coefficient Variation 15.1 % (11.7-14.2); RDW Standard Deviation 49.5 fL (35.1-46.3); Red Blood Cell Count 5.37 M/mm3 (4.30-5.90); White Blood Cell Count 9.32 K/mm3 (4.00-11.30)
[2021-01-07 10:15] LABS: Percent Saturation 22.6 % (20.0-50.0)
[2021-01-07 10:33] LABS: Alanine Aminotransfer (ALT/SGP 42 U/L (12-78); Albumin, Blood 3.3 g/dL (3.4-5.0); Albumin/Globulin Ratio 0.7 (0.8-1.8); Alk Phos 152 U/L (50-136); Anion Gap 9 mmol/L (6-16); Aspartate Aminotrans (AST/SGOT 25 U/L (12-37); Bilirubin, Total 0.5 mg/dL (0.1-1.0); Blood Urea Nitrogen 10 mg/dL (8-24); Bun/Creatinine Ratio 17.4 (12.0-20.0); CO2, Blood 25 mmol/L (21-32); Calcium, Blood 9.4 mg/dL (8.5-10.1); Chloride, Blood 101 mmol/L (98-108); Creatinine, Blood 0.58 mg/dL (0.60-1.20); Globulin, Blood 4.6 g/dL (2.2-4.0); Glomerular Filtration Rate >60 (60-); Glucose, Blood 119 mg/dL (70-99); Potassium, Blood 4.5 mmol/L (3.5-5.5); Sodium, Blood 135 mmol/L (136-145); Total Protein, Blood 7.9 g/dL (6.4-8.2)
== END | disposition home or self-care (01) ==
LOC: LAB 08:52 → LAB SHORT 08:52
PROVIDERS: Nurse Practitioner Family
DX: E11.9 Type 2 diabetes mellitus without complications (principal); D50.9 Iron deficiency anemia, unspecified
CPT/HCPCS: 80053; 82043; 82728; 83036; 83540; 83550; 85025

== ENCOUNTER 2021-02-09 04:35 | Day surgery (SDC) | payer MEDICARE, OTHER | END 2021-02-09 23:41 | disposition home or self-care (01) | LOC: WOUND 04:35 | DX: E11.621 Type 2 diabetes mellitus with foot ulcer (principal); L97.522 Non-pressure chronic ulcer of other part of left foot with fat layer exposed; L97.521 Non-pressure chronic ulcer of other part of left foot limited to breakdown of skin; E11.622 Type 2 diabetes mellitus with other skin ulcer; L97.822 Non-pressure chronic ulcer of other part of left lower leg with fat layer exposed; I89.0 Lymphedema, not elsewhere classified; I87.2 Venous insufficiency (chronic) (peripheral); Z72.0 Tobacco use | CPT/HCPCS: A9270; G0463 ==

== ENCOUNTER 2021-02-23 01:03 | Day surgery (SDC) | payer MEDICARE, OTHER | END 2021-02-23 23:00 | disposition home or self-care (01) | LOC: WOUND 01:03 | DX: E11.622 Type 2 diabetes mellitus with other skin ulcer (principal); L97.822 Non-pressure chronic ulcer of other part of left lower leg with fat layer exposed; E11.621 Type 2 diabetes mellitus with foot ulcer; L97.522 Non-pressure chronic ulcer of other part of left foot with fat layer exposed; I89.0 Lymphedema, not elsewhere classified; I87.2 Venous insufficiency (chronic) (peripheral); Z72.0 Tobacco use | CPT/HCPCS: A9270; G0463 ==

== ENCOUNTER 2021-03-09 03:11 | Day surgery (SDC) | payer MEDICARE, OTHER | END 2021-03-09 12:00 | disposition home or self-care (01) | LOC: WOUND 03:11 | DX: E11.622 Type 2 diabetes mellitus with other skin ulcer (principal); L97.822 Non-pressure chronic ulcer of other part of left lower leg with fat layer exposed; E11.621 Type 2 diabetes mellitus with foot ulcer; L97.522 Non-pressure chronic ulcer of other part of left foot with fat layer exposed; I89.0 Lymphedema, not elsewhere classified; I87.2 Venous insufficiency (chronic) (peripheral); Z72.0 Tobacco use | CPT/HCPCS: G0463 ==

== ENCOUNTER 2021-03-23 01:41 | Day surgery (SDC) | payer MEDICARE, OTHER | END 2021-03-23 22:57 | disposition home or self-care (01) | LOC: WOUND 01:41 | DX: E11.622 Type 2 diabetes mellitus with other skin ulcer (principal); L97.822 Non-pressure chronic ulcer of other part of left lower leg with fat layer exposed; I89.0 Lymphedema, not elsewhere classified; I87.2 Venous insufficiency (chronic) (peripheral) | CPT/HCPCS: A9270; G0463 ==

== ENCOUNTER 2021-04-06 03:25 | Day surgery (SDC) | payer MEDICARE, OTHER | END 2021-04-06 23:37 | disposition home or self-care (01) | LOC: WOUND 03:25 | DX: E11.622 Type 2 diabetes mellitus with other skin ulcer (principal); L97.822 Non-pressure chronic ulcer of other part of left lower leg with fat layer exposed; I89.0 Lymphedema, not elsewhere classified; I87.2 Venous insufficiency (chronic) (peripheral); Z99.3 Dependence on wheelchair | CPT/HCPCS: A9270; G0463 ==

== ENCOUNTER 2021-04-20 03:01 | Day surgery (SDC) | payer MEDICARE, OTHER | END 2021-04-20 22:47 | disposition home or self-care (01) | LOC: WOUND 03:01 | DX: E11.621 Type 2 diabetes mellitus with foot ulcer (principal); L97.522 Non-pressure chronic ulcer of other part of left foot with fat layer exposed; I89.0 Lymphedema, not elsewhere classified; E11.51 Type 2 diabetes mellitus with diabetic peripheral angiopathy without gangrene; I87.2 Venous insufficiency (chronic) (peripheral); Z72.0 Tobacco use | CPT/HCPCS: A9270; G0463 ==

== ENCOUNTER 2021-05-04 00:50 | Day surgery (SDC) | payer MEDICARE, OTHER | END 2021-05-04 23:06 | disposition home or self-care (01) | LOC: WOUND 00:50 | DX: I89.0 Lymphedema, not elsewhere classified (principal) | CPT/HCPCS: G0463 ==

== ENCOUNTER → 2021-06-23 | Outpatient (CLI) | payer MEDICARE, OTHER ==
[2021-06-23 13:57] LABS: Alanine Aminotransfer (ALT/SGP 45 U/L (12-78); Albumin, Blood 3.4 g/dL (3.4-5.0); Albumin/Globulin Ratio 0.9 (0.8-1.8); Alk Phos 124 U/L (50-136); Anion Gap 7 mmol/L (6-16); Aspartate Aminotrans (AST/SGOT 30 U/L (12-37); Bilirubin, Total 0.4 mg/dL (0.1-1.0); Blood Urea Nitrogen 11 mg/dL (8-24); Bun/Creatinine Ratio 21.6 (12.0-20.0); CO2, Blood 25 mmol/L (21-32); Calcium, Blood 9.3 mg/dL (8.5-10.1); Chloride, Blood 105 mmol/L (98-108); Creatinine, Blood 0.51 mg/dL (0.60-1.20); Globulin, Blood 3.8 g/dL (2.2-4.0); Glomerular Filtration Rate >60 (60-); Glucose, Blood 215 mg/dL (70-99); Potassium, Blood 4.1 mmol/L (3.5-5.5); Sodium, Blood 137 mmol/L (136-145); Total Protein, Blood 7.2 g/dL (6.4-8.2)
== END ==
LOC: LAB SHORT 11:04
PROVIDERS: Nurse Practitioner Family
DX: E11.9 Type 2 diabetes mellitus without complications (principal)
CPT/HCPCS: 80053; 83036

== ENCOUNTER → 2021-06-28 | Outpatient (CLI) | payer MEDICARE, OTHER ==
[2021-06-28 14:26] LABS: Source, Urine Clean Catch
[2021-06-28 15:35] LABS: Bilirubin, Urine Neg (Neg); Blood, Urine 5+ (Neg); Glucose Qualitative, Urine 4+ (Neg); Ketones, Urine Neg (Neg); Leukocyte Esterase, Urine 1+ (Neg); Nitrite, Urine Neg (Neg); Protein, Urine 2+ (Neg); Urobilinogen, Urine NORM (Normal)
[2021-06-28 15:57] LABS: Color, Urine Amber (P-Yellow)
[2021-06-28 15:58] LABS: Appearance, Urine Hazy (Clear)
[2021-06-28 15:59] LABS: Bacteria Few /hpf; Red Blood Cells, Urine 50-100 /hpf (0-2); Squamous Epithelial Cells Rare /hpf (Few)
== END | disposition home or self-care (01) ==
LOC: LAB SHORT 14:21
PROVIDERS: Nurse Practitioner Family
DX: N39.0 Urinary tract infection, site not specified (principal)
CPT/HCPCS: 81001; 87086

== ENCOUNTER → 2022-02-03 | Outpatient (CLI) | payer MEDICARE, OTHER ==
[2022-02-04 14:54] LABS: Source, Urine Clean Catch
[2022-02-04 15:04] LABS: Appearance, Urine Hazy (Clear); Bilirubin, Urine Neg (Neg); Blood, Urine 4+ (Neg); Color, Urine Yellow (P-Yellow); Glucose Qualitative, Urine 4+ (Neg); Ketones, Urine Neg (Neg); Leukocyte Esterase, Urine 3+ (Neg); Nitrite, Urine Pos (Neg); Protein, Urine 2+ (Neg); Urobilinogen, Urine NORM (Normal)
[2022-02-04 15:39] LABS: White Blood Cells, Urine TNTC /hpf (0-5)
[2022-02-04 15:40] LABS: Bacteria Many /hpf; Granular Casts 0-2 /lpf (0); Hyaline Casts 0-2 /lpf (0-2); Squamous Epithelial Cells Rare /hpf (Few)
== END | disposition home or self-care (01) ==
LOC: LAB SHORT 16:40
PROVIDERS: Nurse Practitioner Family
DX: C67.9 Malignant neoplasm of bladder, unspecified (principal)
CPT/HCPCS: 81001; 87077; 87086; 87186

== ENCOUNTER → 2022-02-28 | Outpatient (CLI) | payer MEDICARE, OTHER ==
[2022-02-28 13:46] LABS: Source, Urine Voided
[2022-02-28 15:28] LABS: Appearance, Urine Hazy (Clear); Bilirubin, Urine Neg (Neg); Blood, Urine 5+ (Neg); Color, Urine Yellow (P-Yellow); Glucose Qualitative, Urine 4+ (Neg); Ketones, Urine Neg (Neg); Leukocyte Esterase, Urine 1+ (Neg); Nitrite, Urine Pos (Neg); Protein, Urine 2+ (Neg); Specific Gravity, Urine 1.015 (1.003-1.022); Urobilinogen, Urine NORM (Normal)
[2022-02-28 15:42] LABS: Bacteria Many /hpf; Hyaline Casts 0-2 /lpf (0-2); Red Blood Cells, Urine 50-100 /hpf (0-2); Squamous Epithelial Cells Rare /hpf (Few)
== END | disposition home or self-care (01) ==
LOC: LAB SHORT 11:55 → LAB 11:55
PROVIDERS: Nurse Practitioner Family
DX: C67.9 Malignant neoplasm of bladder, unspecified (principal)
CPT/HCPCS: 81001; 87077; 87086; 87186

== ENCOUNTER → 2022-04-27 | Outpatient (CLI) | payer MEDICARE, OTHER ==
[2022-04-27 18:06] LABS: Percent Saturation 3.4 % (20.0-50.0)
== END | disposition home or self-care (01) ==
LOC: LAB SHORT 12:14 → LAB 12:14
PROVIDERS: Internal Medicine Hematology & Oncology
DX: D50.0 Iron deficiency anemia secondary to blood loss (chronic) (principal)
CPT/HCPCS: 82728; 83540; 83550

== ENCOUNTER → 2022-06-08 | Outpatient (CLI) | payer MEDICARE, OTHER ==
[2022-06-08 17:58] LABS: Source, Urine Clean Catch
[2022-06-08 18:58] LABS: Appearance, Urine Turbid (Clear); Bilirubin, Urine Neg (Neg); Blood, Urine 5+ (Neg); Color, Urine Red (P-Yellow); Glucose Qualitative, Urine 4+ (Neg); Ketones, Urine 1+ (Neg); Leukocyte Esterase, Urine 3+ (Neg); Nitrite, Urine Neg (Neg); Protein, Urine 3+ (Neg); Urobilinogen, Urine NORM (Normal); pH, Urine 6.5 (5.0-8.0)
[2022-06-08 19:11] LABS: Bacteria Many /hpf; Red Blood Cells, Urine 50-100 /hpf (0-2); Squamous Epithelial Cells Rare /hpf (Few); White Blood Cells, Urine 25-50 /hpf (0-5)
[2022-06-08 19:13] LABS: Granular Casts 0-2 /lpf (0); Hyaline Casts 0-2 /lpf (0-2)
== END | disposition home or self-care (01) ==
LOC: LAB SHORT 10:00
PROVIDERS: Nurse Practitioner Family
DX: N39.0 Urinary tract infection, site not specified (principal)
CPT/HCPCS: 81001; 87077; 87086; 87186

== ENCOUNTER → 2022-06-27 | Outpatient (CLI) | payer MEDICARE, OTHER ==
[2022-06-28 13:30] LABS: Source, Urine Voided
[2022-06-28 14:21] LABS: Appearance, Urine Hazy (Clear); Bilirubin, Urine Neg (Neg); Blood, Urine 5+ (Neg); Color, Urine Amber (P-Yellow); Glucose Qualitative, Urine 4+ (Neg); Ketones, Urine Neg (Neg); Leukocyte Esterase, Urine 2+ (Neg); Nitrite, Urine Pos (Neg); Protein, Urine 3+ (Neg); Specific Gravity, Urine 1.015 (1.003-1.022); Urobilinogen, Urine NORM (Normal)
[2022-06-28 14:36] LABS: Red Blood Cells, Urine TNTC /hpf (0-2); White Blood Cells, Urine TNTC /hpf (0-5)
[2022-06-28 14:37] LABS: Bacteria Many /hpf; Renal Epithelial Few /hpf (0-Rare); Squamous Epithelial Cells Few /hpf (Few)
== END | disposition home or self-care (01) ==
LOC: LAB SHORT 11:00
PROVIDERS: Nurse Practitioner Family
DX: R31.9 Hematuria, unspecified (principal); Z85.51 Personal history of malignant neoplasm of bladder
CPT/HCPCS: 81001; 87077; 87086; 87186

== ENCOUNTER → 2022-06-30 | Outpatient (CLI) | payer MEDICARE, OTHER ==
[2022-06-30 18:40] LABS: Percent Saturation 7.3 % (20.0-50.0)
== END | disposition home or self-care (01) ==
LOC: LAB SHORT 13:02 → LAB 13:02
PROVIDERS: Internal Medicine Hematology & Oncology
DX: D50.9 Iron deficiency anemia, unspecified (principal)
CPT/HCPCS: 82728; 83540; 83550